=== PATIENT | male | born 1955 | race Caucasian/White ===

== ENCOUNTER 2025-03-08 07:55 | Emergency (ER) | payer MEDICARE, OTHER ==
--- OUTSIDE RECORDS SUMMARY | 2025-03-08 07:58 | XMS REPORT | Continuity of Care Document ---
Author Name Unknown Address [address] [facility] [address] [place] [address] [facility] Address [address] [facility] [address] [place] [address] Care Team Providers Care Transitional Care Manager Name Role Phone GómezScar ann Primary Care Physician Frantz Attending Clinician Unavailable Barbara Martínez MD Attending Clinician BARBARA MARTÍNEZ Attending Clinician [place] Craig M.D. Attending Clinician BARBARA Buenrostro M.D. Attending Clinician Hans Landry Admitting Clinician Unavailable Payers Payer Name Policy Type Policy Number Effective Date Expirati on Date Source MEDICARE PART A AND B [id number] 2020 00:00:00 ON LICENSE OF [facility] [place] - [place] - [place] - [place] - [place] (MEDICARE REPLACEMENT/ADVANTA GE - HMO) [id number] [place]: getbetter! [id number] 2019 00:00:00 [facility] [id number] 2022 00:00:00 Problems Condition Name Condition Details Condition Category Status Onset Date Resolution Date Last Treatment Date Treating Clinician Comments Source Tinnitus Tinnitus Problem Active 12 00:00: 00 [facility] Advance care planning Advance Care Planning Problem Active 12 00:00: 00 [facility] Prostate specific antigen above reference range Prostate Specific Antigen above Reference Range Problem Active 3-26 00:00: 00 [facility] Dyslipidem ia Dyslipidem ia Problem Active 316 00:00: 00 [facility] Hypertensi ve disorder Hypertensi ve Disorder Problem Active 3-16 00:00: 00 [facility] Rupture of triceps tendon, right, initial encounter Rupture of triceps tendon, right, initial encounter Disease Active 5-17 00:00: 00 [facility] Avulsion of skin of elbow, right, initial encounter Avulsion of skin of elbow, right, initial encounter Disease Active 28 00:00: 00 [facility] Olecranon bursitis of right elbow Olecranon bursitis of right elbow Disease Active 17 00:00: 00 [facility] Right elbow pain Right elbow pain Disease Active 17 00:00: 00 [facility] Closed fracture of right olecranon process Closed fracture of right olecranon process Disease Active 17 00:00: 00 [facility] Strain of right triceps Strain of right triceps Disease Active 17 00:00: 00 [facility] Pain of finger of right hand Pain of finger of right hand Problem [facility] Mucous cyst of digit of right hand Mucous cyst of digit of right hand Problem Active [facility] Left knee pain Left knee pain Problem Active [facility] Social History Social Habit Start Date Stop Date Quantity Comments Source Exposure to SARS-CoV-2 (event) 2022-07-14 00:00:00 2022-07-24 09:33:00 Not sure [facility] Alcohol intake 2022-05-10 00:00:00 2022-05-10 00:00:00 Current drinker of alcohol (finding) [facility] Tobacco use and exposure 2022-02-01 00:00:00 2022-02-01 00:00:00 Smokeless tobacco non-user [facility] Cigarette pack-years 2022-02-01 00:00:00 2022-02-01 00:00:00 [facility] Sex Assigned At 1955 00:00:00 1955 00:00:00 [facility] Smoking Status Start Date Stop Date Source Never Smoker [facility] Medications Ordered Medication Name Filled Medication Name Start Date Stop Date Current Medication? Ordering Clinician Indication Dosage Frequency Signature (SIG) Comments Components Source pravastatin (Pravachol) 80 MG tablet 03-18 00:00: 00 Yes 80mg Take 80 mg by mouth every night. [facility] lisinopril 30 MG tablet 02-22 00:00: 00 Yes 30mg QD Take 30 mg by mouth 1 (one) time each day. [facility] Lisinopril 30 MG Oral Tablet Lisinopril 30 MG Oral Tablet 2018-11 00:00: 00 Yes [facility] Pravastatin Sodium 80 MG Oral Tablet Pravastatin Sodium 80 MG Oral Tablet 2018-11 00:00: 00 Yes [facility] Ondansetron HCl - 8 MG Oral Tablet Ondansetron HCl - 8 MG Oral Tablet 08-14 00:00: 00 Yes BARBARA MARTÍNEZ M.D. 1 Q12H TAKE 1 TABLET Every twelve hours [facility] Colace 100 MG Oral Capsule Colace 100 MG Oral Capsule 08-14 00:00: 00 Yes BARBARA MARTÍNEZ M.D. Q0.3333D TAKE 1 CAPSULE 3 TIMES DAILY. [facility] atorvastati n 20 mg tablet Take 1 tablet every day by oral route. atorvastati n 20 mg tablet Take 1 tablet every day by oral route. No 1 Q1D atorvastat in 20 mg tablet Take 1 tablet every day by oral route. [facility] lisinopril 30 mg tablet Take 1 tablet every day by oral route. lisinopril 30 mg tablet Take 1 tablet every day by oral route. No 1 Q1D lisinopril 30 mg tablet Take 1 tablet every day by oral route. [facility] fluorouraci l 5 % topical cream APPLY TO FOREHEAD TWICE DAILY FOR 2-4 WEEKS. fluorouraci l 5 % topical cream APPLY TO FOREHEAD TWICE DAILY FOR 2-4 WEEKS. No fluorourac il 5 % topical cream APPLY TO FOREHEAD TWICE DAILY FOR 2-4 WEEKS. [facility] Immunizations Ordered Immunization Name Filled Immunization Name Date Status Comments Source influenza, high-dose, quadrivalent influenza, high-dose, quadrivalent Unknown Completed [facility] Pneumococcal conjugate PCV20, polysaccharide [id number] conjugate, adjuvant, PF Pneumococcal conjugate PCV20, polysaccharide [id number] conjugate, adjuvant, PF Unknown Completed [facility] influenza, unspecified formulation influenza, unspecified formulation Unknown Completed [facility] COVID-19, mRNA, LNP-S, PF, 100 mcg/0.5 mL dose (Moderna) - ML COVID-19, mRNA, LNP-S, PF, 100 mcg/0.5 mL dose (Moderna) - ML Unknown Completed [facility] COVID-19, mRNA, LNP-S, bivalent booster, PF, 10 mcg/0.2 mL COVID-19, mRNA, LNP-S, bivalent booster, PF, 10 mcg/0.2 mL Unknown Completed [facility] Tdap Tdap Unknown Completed [place] Vital Signs Vital Name Observation Time Observation Value Comments S ource Body Weight 2025-01-27 00:00:00 234 [lb_av] [facility] BP Diastolic 2025-01-27 00:00:00 82 mm[Hg] [facility] Height 2025-01-27 00:00:00 75 [in_i] [facility] BMI (Body Mass Index) 2025-01-27 00:00:00 29.2 kg/m2 [facility] BP Systolic 2025-01-27 00:00:00 136 mm[Hg] [facility] BMI (Body Mass Index) 2024-07-30 00:00:00 28.5 kg/m2 [facility] Height 2024-07-30 00:00:00 75 [in_i] [facility] BP Systolic 2024-07-30 00:00:00 120 mm[Hg] [facility] BP Diastolic 2024-07-30 00:00:00 73 mm[Hg] [facility] Body Weight 2024-07-30 00:00:00 227.8 [lb_av] [facility] Height 2024-01-28 00:00:00 75 [in_i] [facility] BP Diastolic 2024-01-28 00:00:00 71 mm[Hg] [facility] BP Systolic 2024-01-28 00:00:00 124 mm[Hg] [facility] BMI (Body Mass Index) 2024-01-28 00:00:00 29.6 kg/m2 [facility] Body Weight 2024-01-28 00:00:00 237 [lb_av] [facility] BP Diastolic 2023-08-02 00:00:00 59 mm[Hg] [facility] Body Weight 2023-08-02 00:00:00 235 [lb_av] [facility] BMI (Body Mass Index) 2023-08-02 00:00:00 29.4 kg/m2 [facility] BP Systolic 2023-08-02 00:00:00 114 mm[Hg] [facility] Height 2023-08-02 00:00:00 75 [in_i] [facility] BP Diastolic 2023-01-31 00:00:00 81 mm[Hg] [facility] Height 2023-01-31 00:00:00 75 [in_i] [facility] BMI (Body Mass Index) 2023-01-31 00:00:00 29.5 kg/m2 [facility] BP Systolic 2023-01-31 00:00:00 138 mm[Hg] [facility] Body Weight 2023-01-31 00:00:00 236 [lb_av] [facility] Body height 2022-02-01 16:40:00 [facility]5 [facility] Body weight 2022-02-01 16:40:00 108.863 [facility] BMI 2022-02-01 16:40:00 30.00 kg/m2 [facility] Procedures Procedure Date / Time Performed Performing Clinician Source Hand Surgery 2020-12-19 00:00:00 [facility] Post Op Promis 29 Survey 2019-08-27 00:00:00 [facility] [U] XRAY KNEE 4 OR MORE VWS LEFT [id number] 2019-08-24 00:00:00 [facility] Appendectomy 1959-12-19 00:00:00 [facility] Procedure on Foot [place] Elbow Arthroscopy [place] Encounters Start Date/Time End Date/Time Encounter Type Admission Type Attending Clinicians Care Facility Care Department Encounter ID Source 2022-02-01 11:42:26 Outpatient [facility] [id number] [facility] 2025-01-27 00:00:00 2025-01-27 00:00:00 Cristian Nguyen MD: [id number], [place] [address] , Ph. VFP [facility] - [place] - VM_HOU_[place] [id number] [facility] 2024-07-30 00:00:00 2024-07-30 00:00:00 Cristian Nguyen MD: [id number], [address], [place] [address] , Ph. VFP [facility] [place] VM_HOU_[place] [id number] [facility] 2024-01-30 00:00:00 2024-01-30 00:00:00 Outpatient Bui_Q_HOU_M D VFP VFP [id number] [facility] 2024-01-28 00:00:00 2024-01-28 00:00:00 Cristian Nguyen MD: [id number], [address] [place] [address] , Ph. Bui_Q_HOU_M D VFP [facility] - [place] VM_HOU_[place] [id number] [facility] 2024-01-25 00:00:00 2024-01-25 00:00:00 Outpatient Bui_Q_HOU_M D VFP VFP [id number] [facility] 2023-08-02 00:00:00 2023-08-02 00:00:00 Cristian Nguyen MD: [id number], [address], [place] [address] , Ph. VFP [facility] - [place] VM_HOU_[place] [id number] [facility] 2023-07-31 00:00:00 2023-07-31 00:00:00 Outpatient Bui_Q_HOU_M D VFP VFP [id number] [facility] 2023-07-31 00:00:00 2023-07-31 00:00:00 Outpatient Bui_Q_HOU_M D VFP VFP [id number] [facility] 2023-07-31 00:00:00 2023-07-31 00:00:00 Outpatient Bui_Q_HOU_M D VFP VFP [id number] [facility] 2023-01-31 00:00:00 2023-01-31 00:00:00 Outpatient Bui_Q VFP VFP [id number] [facility] 2023-01-31 00:00:00 2023-01-31 00:00:00 Outpatient Bui_Q VFP VFP [id number] [facility] 2023-01-31 00:00:00 2023-01-31 00:00:00 Cristian Nguyen MD: [id number] [facility], [address], [place] [address] , Ph. VFP [place] - [facility] - [place] - VM_HOU_[place] [id number] [facility] 2023-01-28 00:00:00 2023-01-28 00:00:00 Outpatient Bui_Q VFP VFP [id number] [facility] 2023-01-28 00:00:00 2023-01-28 00:00:00 Outpatient Bui_Q VFP VFP [id number] [facility] 2023-01-05 00:00:00 2023-01-05 00:00:00 Outpatient Bui_Q VFP VFP [id number] [facility] 2023-01-04 00:00:00 2023-01-04 00:00:00 Outpatient Bui_Q VFP VFP [id number] [facility] 2022-11-20 00:00:00 2022-11-20 00:00:00 Outpatient Bui_Q VFP VFP [id number] [facility] 2022-07-24 09:45:00 2022-07-24 10:49:50 Office Visit Barbara Martínez [facility] 1 [id number] [id number] [facility] 2022-06-18 09:00:00 2022-06-18 10:01:21 Outpatient [facility] [id number] [facility] 2022-06-18 09:00:00 2022-06-18 10:01:13 Office Visit Barbara Martínez [facility] 1 [id number] [facility] 2022-05-28 09:00:00 2022-05-28 09:25:29 Office Visit Barbara Martínez [facility] 1 [id number] [facility] 2022-05-10 09:00:00 2022-05-10 09:29:14 Office Visit Barbara Martínez [facility] 1 [id number] [facility] 2022-05-03 08:30:00 2022-05-03 09:04:07 Office Visit Barbara Martínez [facility] 1 [id number] [id number] [facility] 2022-04-24 11:40:00 2022-04-24 17:35:00 [facility] [id number] [facility] 2022-04-24 15:15:00 2022-04-24 15:15:00 Outpatient BARBARA MARTÍNEZ [facility] [id number] [facility] 2022-04-12 09:00:00 2022-04-12 09:29:09 Office Visit Barbara Martínez [facility] 1 [id number] [id number] [id number] [facility] 2022-02-12 10:30:00 2022-02-12 11:32:07 Office Visit Barbara Martínez [facility] 1 [id number] [id number] [facility] 2022-02-01 11:00:00 2022-02-01 12:10:32 Office Visit Barbara Martínez [facility] 1 [id number] [id number] [id number] [facility] 2019-08-24 09:30:00 2019-08-24 09:30:00 Appointmen t; [place] MCDANIEL M.D. FULLICK, ROBERT, M.D. [facility] [id number] [facility] 2019-08-17 11:00:00 2019-08-17 11:00:00 Appointmen t; BARBARA MARTÍNEZ M.D. MANSOUR, ASHTON, M.D. [facility] at [facility] [id number] [facility] 2019-08-14 13:00:00 2019-08-14 13:00:00 Appointmen t; BARBARA MARTÍNEZ M.D. MANSOUR, ASHTON, M.D. [facility] [id number] [facility] Results Test Description Test Time Test Comments Results Resul t Comments Source [U] XRAY KNEE 4 OR MORE VWS LEFT [id number] 2019-08-24 09:23:00 Images acquired, not reported on this accession number. [facility] [U] XRAY FINGER(S) - 2 VWS MIN. RIGHT [id number] 2019-08-14 13:08:00 Images acquired, not reported on this accession number. [facility]
--- NOTE | 2025-03-08 08:51 | ER ---
Nurse's Notes [facility] Name: Lamine Humphreys Age: 69 yrs Sex: Male : 1955 Arrival Date: 03/08/2025 Time: 07:55 Bed 13 Private MD: Diagnosis: Acute serous otitis media, right ear;tympanosclerois Presentation: 03/08 08:16 Chief complaint: Patient states: he has been having right ear pain for 2 weeks. patient ap3 reports having completed oral antibiotics and is on antibiotic ear drops for the right ear. patient reports hearing loss in the right ear and pain 6/10 on the pain scale at this time. Coronavirus screen: At this time, the client does not indicate any symptoms associated with coronavirus-19. Ebola Screen: No symptoms or risks identified at this time. Initial Sepsis Screen: Does the patient meet any 2 criteria? No. Patient's initial sepsis screen is negative. Does the patient have a suspected source of infection? No. Patient's initial sepsis screen is negative. Risk Assessment: Do you want to hurt yourself or someone else? Patient reports no desire to harm self or others. Onset of symptoms was February 22, 2025. 08:16 Method Of Arrival: Ambulatory ap3 08:16 Acuity: LOIS 4 ap3 Triage Assessment: 08:19 General: Appears uncomfortable, Behavior is calm, cooperative, appropriate for age. ap3 Pain: Complains of pain in right ear Pain currently is 6 out of 10 on a pain scale. Neuro: Level of Consciousness is awake, alert, obeys commands, Oriented to person, place, time, situation, Appropriate for age. Cardiovascular: Patient's skin is warm and dry. Respiratory: Airway is patent Respiratory effort is even, unlabored, Respiratory pattern is regular, symmetrical. GI: No deficits noted. 08:58 GI: Reports since none. ap3 Historical: - Allergies: 08:18 No Known Allergies; ap3 - PMHx: 08:18 Hypertensive disorder; Hypercholesterolemia; ap3 - Immunization history:: Adult Immunizations up to date, Client reports receiving the 2nd dose of the Covid vaccine. - Infectious Disease History:: Denies. - Social history:: Smoking status: Patient denies any tobacco usage or history of. - Family history:: not pertinent. Screenin:20 [facility] ED Fall Risk Assessment (Adult) History of falling in the last 3 months, ap3 including since admission No falls in past 3 months (0 pts) Confusion or Disorientation No (0 pts) Intoxicated or Sedated No (0 pts) Impaired Gait No (0 pts) Mobility Assist Device Used No (0 pt) Altered Elimination No (0 pt) Score/Fall Risk Level 0 - 2 = Low Risk Oriented to surroundings, Maintained a safe environment, Educated pt \T\ family on fall prevention, incl call for assistance when getting out of bed, Assessed \T\ reinforced patient's understanding of fall precautions, Hourly rounding (assess needs \T\ fall precautionary measures) done, Used ambulatory aids as needed (educated on \T\ assisted with). Abuse screen: Denies threats or abuse. Nutritional screening: No deficits noted. Tuberculosis screening: No symptoms or risk factors identified. Vital Signs: 08:16 BP 131 / 83; Pulse 55; Resp 17; Temp 98.5(O); Pulse Ox 100% ; Weight 81.65 kg; Pain ap3 6/10; 08:16 Pain Scale: Adult ap3 ED Course: 07:58 Patient arrived in ED. im 08:18 Triage completed. ap3 08:20 Arm band placed on right wrist. ap3 08:20 Patient has correct armband on for positive identification. Bed in low position. Call ap3 light in reach. Provided Education on: call light education . Pulse ox on. NIBP on. 08:24 Anam Calhoun MD is Attending Physician. rt 08:50 Iesha Cantrell MD is Referral Physician. rt 08:58 No provider procedures requiring assistance completed. Patient did not have IV access ap3 during this emergency room visit. Administered Medications: No medications were administered Medication: 08:58 VIS not applicable for this client. ap3 Outcome: 08:51 Discharge ordered by . rt 08:58 Discharged to home ambulatory, ap3 08:58 Condition: good 08:58 Discharge instructions given to patient, Instructed on discharge instructions, follow up and referral plans. medication usage, Demonstrated understanding of instructions, follow-up care, medications, Prescriptions given X 1, 08:58 Patient left the ED. ap3 Signatures: Cynthia Pollack RN RN ap3 Anam Calhoun MD MD rt Debora Yen
--- NOTE | 2025-03-08 08:51 | EDPHYS ---
Physician Documentation [facility] Name: Lamine Humphreys Age: 69 yrs Sex: Male : 1955 Arrival Date: 03/08/2025 Time: 07:55 Bed 13 Private MD: ED Physician Anam Calhoun HPI: 03/08 09:25 This 69 yrs old Male presents to ER via Ambulatory with complaints of Nausea, hearing rt loss from right ear. 09:25 Patient completed a 10-day course of antibiotics for right otitis media yesterday. rt Patient states that the pain to the ear has improved but not gone away, states that he occasionally feels a pulsing sensation in the ear. States that he has a near complete loss of hearing to that ear. Denies fever, chills, acute complaints, symptoms are moderate severity, no other aggravating or alleviating factors. States that he did have an episode of nausea this morning, no current nausea. Patient states that few days ago, he put a Q-tip in his ear, pulled out a dark bit of discharge but does not have discharge since then. Historical: - Allergies: 08:18 No Known Allergies; ap3 - PMHx: 08:18 Hypertensive disorder; Hypercholesterolemia; ap3 - Immunization history:: Adult Immunizations up to date, Client reports receiving the 2nd dose of the Covid vaccine. - Infectious Disease History:: Denies. - Social history:: Smoking status: Patient denies any tobacco usage or history of. - Family history:: not pertinent. ROS: 09:25 Constitutional: Negative for fever, chills, and weight loss, Cardiovascular: Negative rt for chest pain, palpitations, and edema, Respiratory: Negative for shortness of breath, cough, wheezing, and pleuritic chest pain, Abdomen/GI: Negative for abdominal pain, nausea, vomiting, diarrhea, and constipation, Skin: Negative for injury, rash, and discoloration, Neuro: Negative for headache, weakness, numbness, tingling, and seizure, :25 ENT: Positive for ear pain, Hearing loss, Exam: :25 Constitutional: This is a well developed, well nourished patient who is awake, alert, rt and in no acute distress. Chest/axilla: Normal chest wall appearance and motion. Nontender with no deformity. No lesions are appreciated. Cardiovascular: Regular rate and rhythm with a normal S1 and S2. No gallops, murmurs, or rubs. Normal PMI, no JVD. No pulse deficits. Respiratory: Lungs have equal breath sounds bilaterally, clear to auscultation and percussion. No rales, rhonchi or wheezes noted. No increased work of breathing, no retractions or nasal flaring. Skin: Warm, dry with normal turgor. Normal color with no rashes, no lesions, and no evidence of cellulitis. MS/ Extremity: Pulses equal, no cyanosis. Neurovascular intact. Full, normal range of motion. 09:25 ENT: Left TM, EAC are clear, unremarkable. There is apparent scarring over the right TM, no drainage noted to the ear, no obvious TM perforation, no signs of mastoiditis. Vital Signs: 08:16 BP 131 / 83; Pulse 55; Resp 17; Temp 98.5(O); Pulse Ox 100% ; Weight 81.65 kg; Pain ap3 6/10; 08:16 Pain Scale: Adult ap3 MDM: 08:30 Medical Screening Exam initiated rt 09:28 Differential diagnosis: Myringosclerosis, otitis media. Data reviewed: vital signs, rt nurses notes. I considered the following discharge prescriptions or medication management in the emergency department Medications were administered in the Emergency Department. See MAR. Test considered but Not performed: Other Details Patient's hearing loss is most likely secondary to scarring of the tympanic membrane, there are no clinical signs or symptoms to suggest a systemic infection, mastoiditis, do not believe that labs or imaging are indicated at this time.. Care significantly affected by the following chronic conditions: Hypertension. Counseling: I had a detailed discussion with the patient and/or guardian regarding the historical points, exam findings, and any diagnostic results supporting the discharge/admit diagnosis, the need for outpatient follow up, to return to the emergency department if symptoms worsen or persist or if there are any questions or concerns that arise at home. Administered Medications: No medications were administered Disposition Summary: 03/08/25 08:51 Discharge Ordered Notes: Location: Home rt Problem: new rt Symptoms: are unchanged rt Condition: Stable rt Diagnosis - Acute serous otitis media, right ear rt - tympanosclerois rt Followup: rt - With: Iesha Cantrell MD - When: 2 - 3 days - Reason: Discharge Instructions: - Discharge Summary Sheet rt - Otitis Media, Adult rt Forms: - Medication Reconciliation Form rt - Antibiotic Education rt - Prescription Opioid Use rt - Patient Portal Instructions rt - Leadership Thank You Letter rt Prescriptions: - cefdinir 300 mg Oral capsule - take 1 capsule ORAL route 2 times per day; 20 capsule; Refills: 0, Product rt Selection Permitted Signatures: Cynthia Pollack RN RN ap3 Anam Calhoun MD MD rt Corrections: (The following items were deleted from the chart) 09:28 09:25 Patient completed a 10-day course of antibiotics for right otitis media rt yesterday. Patient states that the pain to the ear has improved but not gone away, states that he occasionally feels a pulsing sensation in the ear. States that he has a near complete loss of hearing to that ear. Denies fever, chills, acute complaints, symptoms are moderate severity, no other aggravating or alleviating factors. States that he did have an episode of nausea this morning, no current nausea.. rt
[2025-03-08 09:11] VITALS: BP 131/83; TEMP 98.5; O2SAT 100
== END 2025-03-08 08:58 | disposition home or self-care (01) ==
LOC: ER 07:55
DX: H65.01 Acute serous otitis media, right ear (principal); H74.01 Tympanosclerosis, right ear
CPT/HCPCS: 99283